=== PATIENT | female | born 1950 | race Caucasian/White ===

== ENCOUNTER → 2024-05-05 | Outpatient (CLI) | payer MEDICARE ==
--- NOTE | 2024-05-11 08:38 | MM ---
Reason for Exam: Screening (asymptomatic). Patient History: Menarche at age 12. Patient has no children. Left ovary removed at age 39. Right ovary removed at age 39. Hysterectomy at age 39. Postmenopausal. Risk Values: July 5 year model risk: 2.0%. NCI Lifetime model risk: 4.2%. Prior Study Comparison: No prior studies available for comparison. Tissue Density: There are scattered areas of fibroglandular density. Findings: Analyzed By CAD. There is no suspicious group of microcalcifications or new suspicious mass in either breast. Overall Assessment: Benign, BI-RAD 2 Management: Screening Mammogram of both breasts in 1 year. . Patient should continue monthly self-breast exams. A clinical breast exam by your physician is recommended on an annual basis. This exam should not preclude additional follow-up of suspicious palpable abnormalities. Note on July scores and lifetime risk: 1. A July score greater than 3% is considered moderate risk. If this is the case, consider specialist referral to assess eligibility for a risk reducing agent. 2. If overall lifetime risk for the development of breast cancer is 20% or higher, the patient may qualify for future screening with alternating mammogram and breast MRI. [facility], , 05/11/2024 8:35 AM. Electronically signed and approved by: Diogenes Nguyen M.D. Radiologis
--- NOTE | 2024-05-11 14:16 | CTL ---
EXAMINATION TYPE: CT Low Dose Lung DATE OF EXAM ORDERED: 05/05/2024 HISTORY: Nicotine dependence. Lung cancer screening CT DLP: 86.[address] CTDI: 2.4 mGy Automated exposure control for dose reduction was used. SCREENING VISIT: Initial COMPARISON: None TECHNIQUE: Low dose computed tomography scan was performed through the chest at 1 mm thick sections a nd reconstructed images in the coronal plane at [address] DIAGNOSTIC QUALITY: Satisfactory FINDINGS: LUNG NODULES: Present, detailed below: 1. There is a 0.5 cm nodule posterior lateral right lung. Series 4 image 161. 2. There is a 0.9 cm nodule posterior lateral right lung. Series 4 image 164. 3. There is a tiny 2 mm density lateral right lung. Series 4 image 166. 4. there is a 0.4 cm periphe ral medial left lung base nodule, series 4 image 2-6 LUNGS: COPD: Severity: None Fibrosis: Severity: None Lymph nodes: None Other findings: None RIGHT PLEURAL SPACE: Effusion: None Calcification: None Thickening: None Pneumothorax: None LEFT PLEURAL SPACE: Effusion: None Calcification: None Thickening: None Pneumothorax: None HEART: Other: Ascending thoracic aorta at the level the main pulmonary artery measures 3.7 cm. The main pul monary artery at the bifurcation measures 2.6 cm. Heart Size: Normal Coronary calcification: Mild Pericardial effusion: None OTHER FINDINGS: Upper abdomen: Normal Bony thorax: Normal Supraclavicular region: Normal IMPRESSION: Small lower lobe nodules discussed above. Neoplasm is not excluded. Additional workup wit h PET CT recommended. FOLLOW UP CT CHEST RECOMMENDATION: Follow-up PET/CT CT LUNG RAD: Lung-Rad 4A [facility], Workstation: [id number], 05/11/2024 2:14 PM
--- NOTE | 2024-05-11 21:22 | BD ---
EXAMINATION TYPE: Axial Bone Density DATE OF EXAM: 05/05/2024 CLINICAL HISTORY: 74 years old Female. ICD-10 CODE: Z78.0 Post menopausal without HRT Height: 66.5 Weight: 193 FRAX RISK QUESTIONS: Alcohol (3 or more units per day): yes History of Fracture in Adulthood: yes Secondary Osteoporosis: yes 3. Menopause before 45: hyst total 39 Current Tobacco Use: yes RISK FACTORS HISTORY OF: Hip Fracture (Right/Left): When: Spine Fracture: When: History of lt Wrist Fracture: yes When: 2004 Surgery to Wrist (left): yes When: 2004 MEDICATIONS: Thyroid Medications: no Osteoporosis Medications: no EXAM MEASUREMENTS: Bone mineral densitometry was performed using the [employer] System. Bone mineral density as measured about the Lumbar spine is: ----- L1-L4(G/cm2): 1.180 T Score Values are as follows: ----- L1: -0.8 ----- L2: -0.21 ----- L3: -0.3 ----- L4: 1.0 ----- L1-L4: 0.0 Z Score Values are as follows: ----- L1: 0.2 ----- L2: 0.8 ----- L3: 0.7 ----- L4: 2.0 ----- L1-L4: 1.0 Bone mineral density baseline Bone mineral density about the R hip (g/cm2): 0.839 Bone mineral density about the L hip (g/cm2): 0.893 T Score values are as follows: -----R Neck: -2.0 -----L Neck: -1.6 -----R Total: -1.3 -----L Total: -0.9 Z Score values are as follows: -----R Neck: -0.5 -----L Neck: -0.1 -----R Total: -0.1 -----L Total: 0.3 Bone mineral density baseline FRAX%s: The graph provided illustrates a 20.3% chance for a major osteoporotic fx and a 7.4% chance f or the hips probability for fx in 10 years time. IMPRESSION: Osteopenia (T Score between -2.5 and -1). There is slightly increased risk of fracture and the patient may be considered for treatment. Re-Screen 2-5 years. NOTE: T-SCORE=SD OF THE YOUNG ADULT MEAN. [facility], , 05/11/2024 9:20 PM
== END | disposition home or self-care (01) ==
LOC: RADMAMWWP 07:53
PROVIDERS: ATTEND Internal Medicine
DX: Z12.31 Encounter for screening mammogram for malignant neoplasm of breast
CPT/HCPCS: 71271; 77063; 77067; 77080

== ENCOUNTER → 2024-05-06 | Outpatient (CLI) | payer MEDICARE ==
[2024-05-06 10:44] LABS: Basophils # (A) 0.07 X 10*3/uL (0.00-0.10); Eosinophils # (A) 0.19 X 10*3/uL (0.04-0.35); Eosinophils % (A) 2.8 %; HCT 40.9 % (37.2-46.3); HGB 13.6 g/dL (12.0-15.0); Lymphocytes # (A) 2.75 X 10*3/uL (0.90-5.00); Lymphocytes % (A) 39.9 %; MCH 30.2 pg (27.0-32.0); MCHC 33.3 g/dL (32.0-37.0); MCV 90.7 FL (80.0-97.0); Mean Platelet Volume 11.6 FL (9.5-12.2); Monocytes # (A) 0.72 X 10*3/uL (0.20-1.00); Monocytes % (A) 10.4 %; NRBC Per 100 WBC 0 X 10*3/uL (0.00-0.01); Neutrophils # (A) 3.12 X 10*3/uL (1.80-7.70); Neutrophils % (A) 45.3 %; Platelet Count 329 X 10*3/uL (140-440); RBC 4.51 X 10*6/uL (4.10-5.20); RDW 14.6 % (11.5-14.5); WBC 6.89 X 10*3/uL (4.50-10.00)
[2024-05-06 11:03] LABS: ALT 70 U/L (8-44); AST 53 U/L (13-35); Albumin/Globulin Ratio 1.54 Ratio (1.60-3.17); Alkaline Phosphatase 57 U/L (41-126); BUN/Creat Ratio 15.57 Ratio (12.00-20.00); Blood Urea Nitrogen 10.9 mg/dL (9.0-27.0); Calcium 9.1 mg/dL (8.7-10.3); Carbon Dioxide 22.1 mmol/L (21.6-31.8); Chloride 104 mmol/L (96-109); Globulin 2.6 g/dL (1.6-3.3); Glucose 91 mg/dL (70-110); Potassium 4.6 mmol/L (3.5-5.5); Sodium 138 mmol/L (135-145); Total Bilirubin 0.5 mg/dL (0.3-1.2); Total Protein 6.6 g/dL (6.2-8.2)
[2024-05-07 11:09] LABS: % Iron Saturation 62.12 (12.00-45.00); Chol/HDL Ratio 3.94 Ratio; Iron 205 UG/DL (50-170); LDL Cholesterol,Calculated 156.1 mg/dL (0.0-131.0); Total Iron Binding Capacity 330 UG/DL (228-460)
[2024-05-07 11:10] LABS: Hepatitis A Antibody IgM Nonreactive (Nonreactive); Hepatitis B Core IgM Nonreactive (Nonreactive); Hepatitis B Surface Antigen Nonreactive (Nonreactive); Hepatitis C IgG Antibody Nonreactive (Nonreactive)
[2024-05-08 19:09] LABS: ANA Pattern See Footnote; ANA Titer 1:40
== END | disposition home or self-care (01) ==
LOC: LABWHC1 07:47
PROVIDERS: ATTEND Internal Medicine
DX: Z00.00 Encounter for general adult medical examination without abnormal findings
CPT/HCPCS: 36415; 80053; 80061; 80074; 83540; 83550; 84443; 85025; 86038; 86039

== ENCOUNTER → 2024-05-14 | Outpatient (CLI) | payer MEDICARE ==
[2024-05-14 16:07] LABS: % Iron Saturation 57.53 (12.00-45.00); ALT 68 U/L (8-44); AST 58 U/L (13-35); Albumin 4.2 g/dL (3.8-4.9); Alkaline Phosphatase 62 U/L (41-126); Blood Urea Nitrogen 11.9 mg/dL (9.0-27.0); Calcium 9.6 mg/dL (8.7-10.3); Carbon Dioxide 24.5 mmol/L (21.6-31.8); Chloride 102 mmol/L (96-109); Glucose 92 mg/dL (70-110); Iron 191 UG/DL (50-170); Sodium 138 mmol/L (135-145); Total Bilirubin 0.6 mg/dL (0.3-1.2); Total Iron Binding Capacity 332 UG/DL (228-460); Total Protein 7.2 g/dL (6.2-8.2)
[2024-05-14 23:52] LABS: DNA Double-Stranded Negative (Negative)
[2024-05-15 12:26] LABS: Liver/Kidney Microsome Antibod 0.9 UNITS (<=20); Smooth Muscle Antibody 61 UNITS (<20)
[2024-05-15 14:46] LABS: C-ANCA <1:20 Titer (<1:20)
== END | disposition home or self-care (01) ==
LOC: LABWHC1 08:09
PROVIDERS: ATTEND Internal Medicine
DX: E83.19 Other disorders of iron metabolism (principal); R74.01 Elevation of levels of liver transaminase levels
CPT/HCPCS: 36415; 80053; 81256; 83516; 83540; 83550; 86225; 86255; 86376

== ENCOUNTER → 2024-05-22 | Outpatient (CLI) | payer MEDICARE ==
--- NOTE | 2024-05-22 23:42 | PE ---
EXAMINATION TYPE: PET CT fusion skull to thigh DATE OF EXAM: 05/22/2024 CLINICAL INDICATION:Female, 74 years old with history of R91.8 OTHER NONSPECIFIC ABNORMAL FINDING OF LUNG FIELD; TECHNIQUE: Following the intravenous administration of 10.15 mCi of F-18 FDG, whole body images are performed from the skull base to the midthigh. Images are reviewed on the computer in the coronal, axial, and sagittal planes. Reconstructed rotating images are created on independent workstation and reviewed on the computer. A non-contrast CT is performed in conjunction with the PET scan. Glucose level 90 mg/dL CT DLP: 824.06 mGycm, Automated exposure control for dose reduction was used. COMPARISON: CT 05/05/2024, PET/CT None, MRI: None FINDINGS: Mediastinal SUV mean is 3.2. Hepatic parenchyma SUV mean is 3.6. SKULL BASE AND NECK: Periodontal uptake suggesting possible inflammation. No other suspicious radiotracer activity. CHEST, MEDIASTINUM, AND HILAR REGION: Right lower lobe peripheral 8 mm pulmonary nodule redemonstrated with a maximum SUV of 1.8. Other smaller pulmonary nodules are too small for sensitivity of PET/CT. ABDOMEN AND PELVIS: Focal radiotracer uptake involving the anus with a maximum SUV of 11.8. MUSCULOSKELETAL STRUCTURES: No suspicious radiotracer activity. Increased radiotracer uptake around both shoulder joints consistent with arthritic change. OTHER CT: Mild bilateral carotid bulb calcifications. Mild atherosclerotic calcification of the aorta and its branches. Left hepatic cysts. Posthysterectomy. Punctate calcification identified within the left anterior hip soft tissues. Left lower back spinal device. Bilateral dependent subpleural atelec tasis. IMPRESSION: 1. No suspicious radiotracer activity above background involving the previously seen right lower lob e 8 mm pulmonary nodule. Additional pulmonary nodules are too small for sensitivity of PET/CT. Follow -up CT chest in 6-12 months is recommended. 2. Focal radiotracer uptake involving the anus. This is indeterminate and could represent infection/ inflammation however underlying neoplasm is not excluded. Direct visualization is recommended. [facility], , 05/22/2024 11:39 PM
== END | disposition home or self-care (01) ==
LOC: RADPETMAIN 10:25
PROVIDERS: ATTEND Internal Medicine
DX: R91.8 Other nonspecific abnormal finding of lung field
CPT/HCPCS: 78815

== ENCOUNTER → 2024-06-04 | Outpatient (CLI) | payer MEDICARE ==
--- NOTE | 2024-06-04 12:10 | US ---
EXAMINATION TYPE: US liver DATE OF EXAM: 06/04/2024 COMPARISON: NONE CLINICAL INDICATION: Female, 74 years old with history of R74.01 ELEVATION OF LEVELS OF LIVER TRANSAM INASE L; Elevated liver enzymes Exam limitations due to bowel gas. TECHNIQUE: Grayscale and color Doppler imaging of the right upper quadrant was performed. FINDINGS: EXAM MEASUREMENTS: Liver Length: 16.7 cm Gallbladder Wall: Surgically absent CBD: .5 cm Right Kidney: 9.4 x 4.2 x 3.8 cm RATE INSERTER NOTES: Pancreas: Obscured by bowel gas Liver: Increased attenuation multiple cystic areas seen largest 2.0 x 2.4 x 2.1 cm. Gallbladder: Surgically absent Evidence for sonographic Ramey's sign: No CBD: wnl Right Kidney: No hydronephrosis or masses seen IMPRESSION: 1. Increased echo pattern to the liver could be associated with underlying hepatocellular disease or hepatic steatosis. Multiple hypoechoic lesions most likely related to cyst measuring up to 2.4 cm. Ap pear to have been present on prior PET CT scan. [facility], , 06/04/2024 12:08 PM
[2024-06-04 16:32] LABS: HCT 43.9 % (37.2-46.3); MCH 29.4 pg (27.0-32.0); MCHC 31.9 g/dL (32.0-37.0); Mean Platelet Volume 12.1 FL (9.5-12.2); NRBC Per 100 WBC 0 X 10*3/uL (0.00-0.01); Platelet Count 347 X 10*3/uL (140-440); RBC 4.77 X 10*6/uL (4.10-5.20); RDW 14.6 % (11.5-14.5); WBC 5.58 X 10*3/uL (4.50-10.00)
[2024-06-04 16:33] LABS: Basophils # (A) 0.06 X 10*3/uL (0.00-0.10); Basophils % (A) 1.1 %; Eosinophils # (A) 0.12 X 10*3/uL (0.04-0.35); Eosinophils % (A) 2.2 %; Lymphocytes # (A) 1.14 X 10*3/uL (0.90-5.00); Lymphocytes % (A) 20.4 %; Monocytes # (A) 0.67 X 10*3/uL (0.20-1.00); Neutrophils # (A) 3.56 X 10*3/uL (1.80-7.70); Neutrophils % (A) 63.8 %
[2024-06-04 16:39] LABS: Ceruloplasmin 23.4 mg/dL (20.0-60.0)
[2024-06-04 16:44] LABS: % Iron Saturation 64.45 (12.00-45.00); ALT 114 U/L (8-44); AST 129 U/L (13-35); Albumin 4.2 g/dL (3.8-4.9); Alkaline Phosphatase 69 U/L (41-126); BUN/Creat Ratio 17.14 Ratio (12.00-20.00); Calcium 9.6 mg/dL (8.7-10.3); Carbon Dioxide 24.8 mmol/L (21.6-31.8); Chloride 104 mmol/L (96-109); Glucose 89 mg/dL (70-110); Iron 223 UG/DL (50-170); Potassium 4.6 mmol/L (3.5-5.5); Sodium 139 mmol/L (135-145); Total Bilirubin 0.6 mg/dL (0.3-1.2); Total Iron Binding Capacity 346 UG/DL (228-460); Total Protein 7.2 g/dL (6.2-8.2)
[2024-06-05 13:35] LABS: Alpha 1 Anti-Trypsin 147 mg/dL (90 - 200)
== END | disposition home or self-care (01) ==
LOC: RADUSWWP 07:48
PROVIDERS: ATTEND Internal Medicine Gastroenterology
CPT/HCPCS: 76705; 80053; 82103; 82104; 82390; 82728; 83540; 83550; 84165; 85025

== ENCOUNTER 2024-07-24 12:45 | Day surgery (SDC) | payer MEDICARE ==
[2024-07-23 09:38] VITALS: BMI 28.5
[2024-07-24] MEDS: IV FLUID CONTINUATION 1,000 ML IV ONE (15:05)
[2024-07-24 15:08] VITALS: RESP 18; TEMP 97
[2024-07-24] MEDS: LACTATED RINGERS 1,000 ML BAG IV STA (15:21)
[2024-07-24] MEDS ORDERED: PROPOFOL 10 MG/ML 20 ML VIAL IV ONE (15:53)
--- NOTE | 2024-07-24 16:09 | P.PCN ---
Date of Procedure: 07/24/24 Procedure(s) Performed: BRIEF HISTORY: Patient is a 74-year-old pleasant white female scheduled for an elective colonoscopy as a part of a lesion abnormal PET scan that showed increased uptake in the anal/rectal area. PROCEDURE PERFORMED: Colonoscopy with snare polypectomy. PREOPERATIVE DIAGNOSIS: Abnormal PET scan. IV sedation per Anesthesia. PROCEDURE: After informed consent was obtained, the patient, was brought into the endoscopy unit. IV sedation was administered by Anesthesia under continuous monitoring. Digital rectal examination was normal. Initially the Olympus CF-160 flexible video colonoscope was then inserted in the rectum, gradually advanced into the cecum without any difficulty. Careful examination was performed as the scope was gradually being withdrawn. Ileocecal valve and the appendiceal orifice were visualized and appeared normal. Prep was excellent. Mucosa of the cecum 3 mm polyp that was removed by cold biopsy. In the ascending colon there was a 1 cm polyp removed by snare polypectomy. Rest of the, ascending colon, transverse colon, descending colon, normal. In the sigmoid colon there was another 1 cm polyp removed by snare polypectomy. Rest of the sigmoid colon, and rectum appeared normal. Retroflexion was performed in the rectum and small internal hemorrhoids were seen were seen. The patient tolerated the procedure well. IMPRESSION: 3 mm cecal polyp status post cold biopsy 1 cm ascending colon polyp status post snare polypectomy 1 cm sigmoid colon polyp status post polypectomy Rectum and anus appeared normal other than small internal hemorrhoids RECOMMENDATIONS: Findings of this examination were discussed with the patient as well as her family.. She was advised to follow-up the biopsy results. If the biopsy reveals adenoma she can have repeat colonoscopy in 3 years
[2024-07-24 16:38] VITALS: BP 163/81; PULSE 61
== END 2024-07-24 16:55 ==
LOC: ORWHC2ENDO 12:45
PROVIDERS: ATTEND Internal Medicine Gastroenterology
DX: D12.0 Benign neoplasm of cecum (principal); D12.2 Benign neoplasm of ascending colon; D12.5 Benign neoplasm of sigmoid colon; K64.8 Other hemorrhoids; F32.A Depression, unspecified; F17.210 Nicotine dependence, cigarettes, uncomplicated; F10.90 Alcohol use, unspecified, uncomplicated; Z90.49 Acquired absence of other specified parts of digestive tract; Z90.710 Acquired absence of both cervix and uterus
CPT/HCPCS: 88305; 45380; 45385; J2704

== ENCOUNTER → 2024-07-27 | Outpatient (CLI) | payer MEDICARE ==
[2024-07-27 14:56] LABS: Basophils # (A) 0.06 X 10*3/uL (0.00-0.10); Basophils % (A) 0.7 %; Eosinophils # (A) 0.09 X 10*3/uL (0.04-0.35); Eosinophils % (A) 1.1 %; HCT 40.9 % (37.2-46.3); HGB 13.4 g/dL (12.0-15.0); Lymphocytes % (A) 34.1 %; MCH 29.2 pg (27.0-32.0); MCHC 32.8 g/dL (32.0-37.0); MCV 89.1 FL (80.0-97.0); Mean Platelet Volume 11.5 FL (9.5-12.2); Monocytes # (A) 0.89 X 10*3/uL (0.20-1.00); Monocytes % (A) 10.8 %; NRBC Per 100 WBC 0 X 10*3/uL (0.00-0.01); Neutrophils % (A) 52.4 %; Platelet Count 371 X 10*3/uL (140-440); RBC 4.59 X 10*6/uL (4.10-5.20); RDW 14.3 % (11.5-14.5); WBC 8.21 X 10*3/uL (4.50-10.00)
[2024-07-27 15:16] LABS: ALT 49 U/L (8-44); AST 30 U/L (13-35); Albumin/Globulin Ratio 1.48 Ratio (1.60-3.17); Alkaline Phosphatase 54 U/L (41-126); BUN/Creat Ratio 17.86 Ratio (12.00-20.00); Blood Urea Nitrogen 12.5 mg/dL (9.0-27.0); Calcium 9.4 mg/dL (8.7-10.3); Carbon Dioxide 23.2 mmol/L (21.6-31.8); Chloride 103 mmol/L (96-109); Globulin 2.7 g/dL (1.6-3.3); Glucose 101 mg/dL (70-110); Potassium 4.2 mmol/L (3.5-5.5); Sodium 137 mmol/L (135-145); Total Bilirubin 0.6 mg/dL (0.3-1.2); Total Protein 6.7 g/dL (6.2-8.2)
== END | disposition home or self-care (01) ==
LOC: LABWHC1 10:16
PROVIDERS: ATTEND Internal Medicine Gastroenterology
DX: R74.01 Elevation of levels of liver transaminase levels (principal)
CPT/HCPCS: 36415; 80053; 85025

== ENCOUNTER → 2024-12-04 | Outpatient (CLI) | payer MEDICARE ==
[2024-12-04 13:38] LABS: African American GFR (CKD) >90 (>60 ml/min/1.73 sqM); Blood Urea Nitrogen 12 mg/dL (7-17); Non-African American GFR(CKD) 86 (>60 ml/min/1.73 sqM)
--- NOTE | 2024-12-04 14:49 | CT ---
EXAMINATION TYPE: CT chest w con DATE OF EXAM: 12/04/2024 2:31 PM COMPARISON: 05/22/2024, 05/05/2024 CLINICAL INDICATION: Female, 74 years old with history of R91.8 OTHER NONSPECIFIC ABNORMAL FINDING OF LUNG F; PHH, hx of smoking, nodule found on previous CT per pt TECHNIQUE: Multiple axial images were obtained through the chest. Sagittal and coronal reformats were created for review. MIP was performed on a separate workstation. Contrast used:100 ml mL of Isovue 300 with IV Contrast (None if empty) Oral contrast used: (None if empty) CT DLP: 563 mGycm, Automated exposure control for dose reduction was used. FINDINGS: LUNGS/ PLEURA: No focal consolidation, pneumothorax or pleural effusion. Stable right lower lobe grou ndglass nodule measuring 5 mm series 4 image 32. Stable 3 mm series 4 image 25 possibly intrafissural lymph node. Stable left lower lobe lateral ground glass nodule measuring 4 mm series 4 image 40 AIRWAY: Patent and unremarkable. HEART: Size within normal limits. No significant coronary artery calcifications. MEDIASTINUM: No gross evidence of adenopathy. VASCULATURE: No aortic aneurysm. MUSCULOSKELETAL: Mild disc degeneration changes are present throughout the thoracolumbar spine second grant to osteophyte formation and facet joint arthropathy. SOFT TISSUES/LYMPH NODES: Mass posterior back device with lead entering the posterior thecal sac in t he [id number] into the neck. LOWER NECK: No significant findings. UPPER ABDOMEN: Diffuse low-attenuation to the liver parenchyma. Few scattered simple and slightly com plex hepatic cyst measuring up to 20 mm. No follow-up recommended. IMPRESSION: 1. Stable pulmonary nodules no new or enlarging pulmonary nodules. Yearly low-dose lung cancer scree gigi recommended. 2. Hepatic steatosis. [facility], , 12/04/2024 2:47 PM
== END | disposition home or self-care (01) ==
LOC: RADCTMAIN 12:43
PROVIDERS: ATTEND Internal Medicine
DX: R91.8 Other nonspecific abnormal finding of lung field (principal); K76.0 Fatty (change of) liver, not elsewhere classified
CPT/HCPCS: 82565; 84520; 71260; 36415; Q9967

== ENCOUNTER → 2025-03-11 | Outpatient (CLI) | payer MEDICARE ==
[2025-03-11 09:14] LABS: African American GFR (CKD) >90 (>60 ml/min/1.73 sqM); Blood Urea Nitrogen 13 mg/dL (7-17); Non-African American GFR(CKD) 89 (>60 ml/min/1.73 sqM)
--- NOTE | 2025-03-11 10:30 | CT ---
EXAMINATION TYPE: CT chest w con DATE OF EXAM: 03/11/2025 10:12 AM COMPARISON: 12/04/2024 CLINICAL INDICATION: Female, 75 years old with history of R91.8 SPN, lung nodule, TECHNIQUE: CT scan of the chest is performed with IV Contrast, patient injected with 100 mL of Isovue 300. CT DLP: 597 mGycm, Automated exposure control for dose reduction was used. FINDINGS: LUNGS: 6 mm pulmonary nodule right lower lobe is slightly larger in size and measures 6 mm versus 5 p reviously. Six-month follow-up recommended. Adjacent 3 mm pulmonary nodule. Stable 4 mm pulmonary nod ule left lower lobe laterally. 3 mm subpleural nodule right upper lobe. No evidence for focal infiltr ates. . There is no pleural effusion or pneumothorax seen. The tracheobronchial tree is patent. MEDIASTINUM: There are no greater than 1 cm hilar or mediastinal lymph nodes. No pericardial effusi on is seen. Thoracic aorta is of normal caliber. HEART: Size within normal limits. No significant coronary artery calcifications. UPPER ABDOMEN: Hepatic steatosis with scattered cysts remain stable. OTHER: No additional significant abnormality is seen. IMPRESSION: 1. Slight interval enlargement of right lower lobe pulmonary nodule may be technical in nature. Six-m onth follow-up is advised as a precautionary measure. Additional nodules remain stable. [facility], , 03/11/2025 10:28 AM
== END | disposition home or self-care (01) ==
LOC: RADCTMAIN 08:37
PROVIDERS: ATTEND Internal Medicine
DX: R91.8 Other nonspecific abnormal finding of lung field (principal)
CPT/HCPCS: 82565; 84520; 71260; 36415; Q9967